=== PATIENT | female | born 1940 | race Caucasian/White ===

== ENCOUNTER → 2016-06-28 | Day surgery (SDC) | payer OTHER ==
[~2016-06-28] VITALS: Ht 153.7 cm; Wt 60.1 kg
[~2016-06-28] MED LIST: *ENALAPRILAT 1.25 MG/ML VIAL PERIprocedural Use ONLY ONE; *ONDANSETRON 4 MG VIAL PERIprocedural Use ONLY ONE; ATEN1TAB74 PO; ATEN50TA PO; ATROPINE SULFATE 1% OPHT SOLN 2 ML BTL ONE; BALANCED SALT SOLN OPHT IRRIG 15 ML BTL ONE; CHLORHEXIDINE GLUCONATE 2 % 1 PACK (2 CLOTHS) TOPICAL PRN; DEXAMETHASONE SOD PHOS 20 MG/5 ML VIAL ONE; EPINEPHrine HCL (1:1000) 1 MG/ML VIAL ONE; FAMOTIDINE 20 MG/2 ML VIAL ONE; GLIP10TA6 PO; HYDR-2768 PO; INSULIN HUMAN REGULAR 1,000 UNITS/10 ML VIAL SQ PRN; LABETALOL HCL 100 MG/20 ML VIAL ONE; LACTATED RINGER'S 1000 ML INJ 1,000 ML IV ONE; LACTATED RINGER'S 1000 ML IV PRN; LATA0.002 LEFT EYE; METF500T PO; METOPROLOL TARTRATE 25 MG TAB PO PRN; MEVA40TA6 PO; MIDAZOLAM HCL 2 MG/2 ML VIAL ONE; NEXI40CA PO; ONDANSETRON HCL 4 MG/2 ML VIAL IV PUSH ONE; POVIDONE IODINE 5% (ANTISEPSIS KIT) 4 APPLICATIONS EACH NARE PRN; PRIL20CA9 PO; PROPOFOL 200 MG/20 ML AMP IV ONE; SODIUM CHLORID 0.9% 500 ML IV PRN; STERILE WATER FOR INJ 20 ML VIAL ONE; TOBRAMYCIN/DEXAMETHASONE OPTH OINT 3.5 GM TUBE ONE; TRIAMCINOLONE ACETONIDE/PF 40 MG/ML OPTH VIAL ONE; ceFAZolin INJ 1,000 MG VIAL ONE
[2016-06-28 06:51] VITALS: BP 189/81; PULSE 64; RESP 16; TEMP 97.9; O2SAT 99
[2016-06-28 06:57] LABS: AUTOMATED NEUTROPHIL # 3.8 TH/MM3 (1.8-7.7); BASOPHIL % 0.4 % (0.0-2.0); EOSINOPHIL # 0.1 TH/MM3 (0-0.4); EOSINOPHIL % 1.7 % (0.0-4.0); HEMATOCRIT 38.3 % (35.0-46.0); HEMO FLAGS DIFF FINAL; LYMPH % 34.3 % (9.0-44.0); LYMPHOCYTE # 2.4 TH/MM3 (1.0-4.8); MEAN CORPUSCULAR HEMOGLOBIN 30.1 PG (27.0-34.0); MEAN CORPUSCULAR HGB CONC 33.5 % (32.0-36.0); MONO % 8.3 % (0.0-8.0); NEUT % 55.3 % (16.0-70.0); PLATELET COUNT 263 TH/MM3 (150-450); RED BLOOD COUNT 4.26 MIL/MM3 (4.00-5.30); RED CELL DISTRIBUTION WIDTH 13.9 % (11.6-17.2); WHITE BLOOD COUNT 6.9 TH/MM3 (4.0-11.0)
[2016-06-28] MEDS: PHENYLEPHRINE HCL 2.5% OPTH SOLN 2 ML BTL LEFT EYE SCH ×3 (07:10→07:50)
[2016-06-28] MEDS: TROPICAMIDE 1% OPTH SOLN 2 ML BTL LEFT EYE SCH ×3 (07:10→07:50)
[2016-06-28] MEDS: CYCLOPENTOLATE HCL 1% OPHT SOLN 2 ML BTL LEFT EYE SCH ×3 (07:10→07:50)
[2016-06-28] MEDS: ATROPINE SULFATE 1% OPHT SOLN 5 ML BTL LEFT EYE SCH ×2 (07:35→07:50)
--- NOTE | 2016-06-28 09:54 | EKG ---
Date Performed: 06/28/2016 Time Performed: 06:56:37 PTAGE: 76 years EKG: Sinus rhythm NONSPECIFIC ST & T-WAVE ABNORMALITY BORDERLINE ECG PREVIOUS TRACING : 12/16/2008 13.46 Compared to prior tracing no significant change DOCTOR: Julio C Cooper Interpretating Date/Time 06/28/2016 09:52:54
[2016-06-28 11:20] VITALS: BP 189/90; PULSE 68; RESP 18; TEMP 97.2; O2SAT 99
--- NOTE | 2016-06-30 15:01 | MP ---
cc: CHEY BARCENAS M.D. DATE OF SURGERY: 06/28/2016 PREOPERATIVE DIAGNOSIS Vitreomacular traction, left eye. POSTOPERATIVE DIAGNOSIS Vitreomacular traction, left eye. PROCEDURE Trans pars plana vitrectomy with air-fluid exchange, left eye. SURGEON Dr. Chey Barcenas. ANESTHESIA General laryngeal mask anesthesia. INDICATION Ms Esquivel is a 76-year-old female with a history of decreased central vision in her left eye. Her vision had dropped to 20/80- and she wished to proceed electively with a vitrectomy to relieve the vitreomacular traction in her left eye. The risks and benefits of surgery were discussed with the patient. Informed consent was obtained. No guarantee was made as to visual outcome. PROCEDURE She was brought to [facility] Operating Room 1 and placed on the operating table. Appropriate anesthesia monitoring devices were applied and she was placed under general anesthesia using laryngeal mask. The left eye was identified as the operative site and prepped and draped in the usual sterile fashion. A lid speculum was placed and the microscope was brought around and adjusted. At this time, an appropriate time-out was called with the surgical team agreeing to the surgical procedure and surgical site. Using the Narciso 23-gauge vitrectomy system, the trocar cannulas were placed 3.5 mm posterior to the limbus after first displacing the conjunctiva. The first was placed at approximately 3 o'clock and verified to be in the posterior chamber. An infusion cannula was affixed to it and was turned on. Two additional trocar cannulas were placed at 10 and 2 o'clock. A small amount of Kenalog was introduced into the posterior chamber to help visualize the vitreous. Using the flat contact lens, the eye was entered with illuminated light pipe and vitrectomy cutter and a core vitrectomy was carried out using the vitrectomy cutter on aspiration only. The posterior hyaloid was elevated over the posterior pole and then removed out into the periphery. The BIOM was used to carry this vitrectomy out to the far periphery. Plugs were placed back in the eye and the fundus was inspected with the indirect ophthalmoscope and scleral depression. No retinal breaks were found. Next, using a soft tipped linear extrusion needle, an air-fluid exchange was performed. The plugs were placed back in the cannulas and they were removed one by one with pressure tamponade with a cotton swab over the site. The infusion cannula was removed lastly and an interrupted 7-0 Vicryl suture was placed there to insure that the sclerotomy was airtight. Atropine drops were placed on the cornea followed by subconjunctival injections of Ancef 125 mg in 0.5 cc and Decadron 2 mg in 0.5 cc. The lid speculum was removed and the patient was undraped. TobraDex ointment was placed on the cornea and then the left eye was patched and shielded. The patient had the laryngeal mass removed in the room and was returned to recovery in good condition. She will be lying on her right side until awake and alert and then face down. MD SRI Barber/BJF /9:50 AM /2:22 PM
== END | disposition home or self-care (01) ==
LOC: HSDC 06:07
PROVIDERS: ATTEND Ophthalmology
DX: H43.822 Vitreomacular adhesion, left eye (principal); E11.9 Type 2 diabetes mellitus without complications; Z79.84 Long term (current) use of oral hypoglycemic drugs
CPT/HCPCS: 00145; 67036; 82948; 85025; 93005; J0171; J0690; J1100; J2250; J2405; J3010; J3300; J7120